=== PATIENT | female | born 1935 | race Caucasian/White ===

== ENCOUNTER 2016-10-31 14:58 | Inpatient (IN) ==
--- NOTE | 2016-10-31 15:52 | XRay Report ---
CLINICAL INFORMATION: Fall. Right hip pain. TECHNIQUE: AP pelvis and both hips. Lateral right hip COMPARISON: None. FINDINGS: Negative right hip. Normal right femoral head and neck. No fracture. No evidence for avascular necrosis. Right hip joint space is symmetric with respect to the left. Fractures of the right superior and inferior pubic rami. Left pubic bone is intact. Sacrum is negative. IMPRESSION: 1. Negative right hip 2. Fractures of the right superior and inferior pubic rami Interpreted and Authenticated by: Juan Ramon Pradhan 10/31/16
[2016-10-31 16:50] LABS: Mean Cell Volume 93.1 fL (80.0-100.0); Mean Corpuscular HGB Conc 33.2 g/dL (31.0-36.0); Mean Corpuscular Hemoglobin 30.9 pg (26.0-34.0); Platelet Count 189 K/mcL (140-440); RBC 4.65 M/mcL (4.00-5.20)
[2016-10-31 17:20] LABS: Band Neutrophils % 2 % (0-10); Eosinophils % (Manual) 1 % (0-7); Lymphocytes % 10 % (15-49); Monocytes % (Manual) 3 % (1-12); Myelocytes % 1 % (0-0); Platelet Estimate NORMAL (NORMAL); RBC Morphology NORMAL (NORMAL); Segmented Neutrophils % 83 % (38-78)
[2016-10-31] MEDS ORDERED: HYDROcodone/APAP 5/325MG TABLET PO ONE (18:21)
[2016-10-31] MEDS ORDERED: MAGNESIUM HYDROXIDE 30 ML ORAL.SUSP PO PRN (19:24)
[2016-10-31] MEDS ORDERED: traZODone HCL 50 MG TABLET PO PRN (19:24)
[2016-10-31] MEDS ORDERED: MAGNESIUM SULFATE 2 GM/50 ML BAG IV PRN (19:24)
[2016-10-31] MEDS ORDERED: ACETAMINOPHEN 325 MG TABLET PO PRN (19:24)
[2016-10-31] MEDS ORDERED: ACETAMINOPHEN 1,000 MG/100 ML BOTTLE IV PRN (19:24)
[2016-10-31] MEDS ORDERED: HYDROmorphone 2 MG/ML SYRINGE IV PRN (19:24)
[2016-10-31] MEDS ORDERED: ONDANSETRON 4 MG/2 ML VIAL IV PRN (19:24)
[2016-10-31] MEDS ORDERED: POTASSIUM CHLORIDE 20 MEQ PACKET PO PRN (19:24)
[2016-10-31] MEDS ORDERED: POLYETHYLENE GLYCOL 3350 17 GM PACKET PO PRN (19:24)
[2016-10-31] MEDS ORDERED: 0.9 % SODIUM CHLORIDE 1,000 ML IV SCH (19:24)
[2016-10-31 21:51] LABS: Appearance,Urine CLEAR; Bacteria,Urine 0 /hpf (0); Bilirubin,Urine NEG (NEG); Color,Urine YELLOW; Glucose,Urine (UA) NEGATIVE (NEG); Leukocyte Esterase,Urine NEG /uL (NEG); Mucus,Urine FEW /hpf (0); Nitrate,Urine NEG (NEG); Protein,Urine NEG (NEG); Specific Gravity,Urine 1.014 (1.000-1.035); Urine Blood 0.03 mg/dL (<0.03); Urine RBC 2 /hpf (0-1); Urine Squamous Epithelial Cell < 1 /hpf (0-4); Urine Transitional Epi Cells < 1 /hpf (0-2); Urine WBC 3 /hpf (0-4)
[2016-10-31] MEDS: DOCUSATE SODIUM 100 MG CAPSULE PO SCH (22:21)
[2016-10-31] MEDS: 0.9 % SODIUM CHLORIDE 10 ML SYRINGE IV SCH (22:22)
[2016-10-31] MEDS: SENNOSIDES/DOCUSATE SODIUM 1 TAB TABLET PO SCH (22:22)
[2016-10-31] MEDS: HEPARIN 5,000 UNIT/ML VIAL SQ SCH (22:22)
[2016-11-01] MEDS: 0.9 % SODIUM CHLORIDE 10 ML SYRINGE IV SCH ×3 (05:45→20:20)
[2016-11-01 06:26] LABS: Mean Cell Volume 92.4 fL (80.0-100.0); Mean Corpuscular HGB Conc 34.1 g/dL (31.0-36.0); Mean Corpuscular Hemoglobin 31.6 pg (26.0-34.0); Platelet Count 147 K/mcL (140-440); RBC 3.86 M/mcL (4.00-5.20); Red Cell Distribution Width 12.9 % (11.5-14.5)
[2016-11-01 06:57] LABS: Band Neutrophils % 1 % (0-10); Eosinophils % (Manual) 2 % (0-7); Lymphocytes % 13 % (15-49); Monocytes % (Manual) 2 % (1-12); Platelet Estimate NORMAL (NORMAL); RBC Morphology NORMAL (NORMAL); Segmented Neutrophils % 80 % (38-78)
[2016-11-01 06:58] LABS: ALT/SGPT 12 U/l (0-40); Albumin 3.7 gm/dL (3.2-5.2); Albumin/Globulin Ratio 1.6 (1.0-2.3); Alkaline Phosphatase 53 U/L (39-117); Bilirubin,Direct 0.2 mg/dL (0.0-0.3); Blood Urea Nitrogen 14 mg/dl (8-23); Gamma Glutamyl Transpeptidase 7 U/L (5-36); Magnesium 1.9 mg/dL (1.6-2.5); Uric Acid 3.8 mg/dL (2.5-8.0)
[2016-11-01] MEDS: PANTOPRAZOLE 40 MG TABLET PO SCH (07:07)
[2016-11-01 07:09] LABS: Hemoglobin A1C 5.2 % HGB (4.0-6.0)
[2016-11-01] MEDS: traMADol 50 MG TABLET PO PRN ×2 (08:44→16:11)
[2016-11-01] MEDS: DOCUSATE SODIUM 100 MG CAPSULE PO SCH ×2 (08:44→20:20)
[2016-11-01] MEDS: HEPARIN 5,000 UNIT/ML VIAL SQ SCH ×2 (08:44→20:20)
[2016-11-01] MEDS: LISINOPRIL 5 MG TABLET PO SCH (08:44)
[2016-11-01] MEDS: MULTIVIT,THER IRON,CA,FA & MIN 1 TABLET PO SCH (08:44)
[2016-11-01] MEDS: DONEPEZIL 10 MG TABLET PO SCH (08:44)
[2016-11-01] MEDS: ASPIRIN 81 MG TAB.CHEW PO SCH (08:45)
[2016-11-01] MEDS: DORZOLAMIDE 2% OPHTH DROPS 10ML BOTTLE OD SCH (08:46)
--- NOTE | 2016-11-01 11:30 | Internal Med Progress Note ---
Medical - PN: Subj Patient information: Note initiated : 11/01/16 at 11:30 am Service Date, if different from initiated Date: [] Patient: Caroline Connell 81 y/o F admitted on 10/31/16 for Right Hip Pain. Chief Complaint: [] Interval history: 10/31- patient admitted with right inferiorsuperior pubic rami fracture after fall. Admitted for pain management/physical therapy. veronika count 12.3 11/01-no overnight adverse events. Continue physical therapy. Family would be willing to take patient home once patient clinically improves. no overnight fever chills nausea vomiting or concerns per staff. - Constitutional Vitals: Vital Signs Temp Pulse Resp BP Pulse Ox 99.0 F 83 16 133/68 96 11/01/16 07:49 11/01/16 07:49 11/01/16 07:49 11/01/16 07:49 11/01/16 07:49 Period Temp Pulse Resp BP Sys/Hanley Pulse Ox Last 24 Hr 97.3 F-99.0 F 64-86 16-24 133-173/66-79 94-98 Intake and Output 10/31/16 11/01/16 11/01/16 21:59 05:59 13:59 Intake Total 50 / 50 480 / 480 Output Total 200 / 200 300 / 300 200 / 200 Balance -200 / -200 -250 / -250 280 / 280 Weight 161 lb 8 oz Intake & Output: Intake & Output 10/31/16 11/01/16 11/01/16 21:59 05:59 13:59 Intake Total 50 / 50 480 / 480 Output Total 200 / 200 300 / 300 200 / 200 Balance -200 / -200 -250 / -250 280 / 280 Weight 161 lb 8 oz Intake: Oral 50 / 50 480 / 480 Output: Void Amount 200 / 200 300 / 300 200 / 200 Other: Meal Breakfast Percent of Meal Consumed 100% Feeding Ability Independent General appearance: cooperative, no acute distress Exam: alert oriented nonlabored breathing nondistended abdomen No anxiety Medical - PN: Obj Da - Labs CBC & Chem 7: 11/01/16 05:34 11/01/16 05:34 Labs: Abnormal Lab Results 11/01/16 11/01/16 10/31/16 05:34 05:34 21:08 RBC 3.86 L Hct 35.7 L Seg Neutrophils % 80 H Lymphocytes % 13 L Glucose 119 H Total Bilirubin 1.8 H Urine Ketones 20 A Urine Occult Blood 0.03 A Urine Urobilinogen 2.0 A Urine RBC 2 H Meds: Medications Acetaminophen (Tylenol) 650 mg PO Q4-6HP PRN PRN Reason: PAIN/FEVER > 101 Aspirin (Aspirin) 81 mg PO DAILY [facility] Last Admin: 11/01/16 08:45 Dose: 81 mg Docusate Sodium (Colace) 100 mg PO BID [facility] Last Admin: 11/01/16 08:44 Dose: 100 mg Donepezil HCl (Aricept) 10 mg PO DAILY [facility] Last Admin: 11/01/16 08:44 Dose: 10 mg Dorzolamide HCl (Trusopt 2% Ophth Drops) 1 gtt OD DAILY [facility] Last Admin: 11/01/16 08:46 Dose: Not Given Heparin Sodium (Porcine) (Heparin) 5,000 unit SQ Q12 [facility] Last Admin: 11/01/16 08:44 Dose: 5,000 unit Hydromorphone HCl (Dilaudid) 0 mg IV Q4HP PRN PRN Reason: Pain Magnesium Sulfate (Magnesium Sulfate) 2 gm in 50 mls @ 50 mls/hr IV UD PRN PRN Reason: MG = or < 1.7 Sodium Chloride (Sodium Chloride 0.9%) 1,000 mls @ 50 mls/hr IV .Q20H [facility] Stop: 11/03/16 07:23 Last Admin: 10/31/16 20:19 Dose: 50 mls/hr Acetaminophen (Ofirmev) 1,000 mg in 100 mls @ 200 mls/hr IV Q6HP PRN PRN Reason: PAIN/FEVER > 101 Iron Carb/Multivit/[place]/Folic Acid (Multivitamin W/Minerals) 1 tab PO DAILY [facility] Last Admin: 11/01/16 08:44 Dose: 1 tab Lisinopril (Zestril) 5 mg PO DAILY [facility] Last Admin: 11/01/16 08:44 Dose: 5 mg Magnesium Hydroxide (Milk Of Magnesia) 30 ml PO HSP PRN PRN Reason: Constipation Ondansetron HCl (Zofran) 4 mg IV Q4-6HP PRN PRN Reason: Nausea And Vomiting Pantoprazole Sodium (Protonix) 40 mg PO QAMAC [facility] Last Admin: 11/01/16 07:07 Dose: 40 mg Bimatoprost [Lumigan ] Ophthalmic Solution 1 dose BOTH EYES HS DOT Polyethylene Glycol (Miralax) 17 gm PO DAILYP PRN PRN Reason: Constipation Potassium Chloride (Klor-Con) 40 meq PO DAILYP PRN PRN Reason: K+ < 3.5 Senna/Docusate Sodium (Senna Plus Tablet) 1 tab PO HS [facility] Last Admin: 10/31/16 22:22 Dose: Not Given Sodium Chloride (Saline Flush) 10 ml IV Q8 [facility] Last Admin: 11/01/16 05:45 Dose: Not Given Tramadol HCl (Ultram) 50 mg PO Q4-6HP PRN PRN Reason: Pain Last Admin: 11/01/16 08:44 Dose: 50 mg Trazodone HCl (Desyrel) 50 mg PO HSP PRN PRN Reason: Insomnia Medical - PN: A/P - Time Spent With Patient Total time spent is greater than 50% in coordination of care (as documented) at patient's floor/unit and/or counseling patient: 25 - 35 minutes (1) Pubic ramus fracture Status: Acute Assessment and plan: * pubic rami fracture secondary to fall-continue physical therapy and pain management * pain management on as needed opioids * History of dementia and donepezil * hypertension lisinopril * Glaucoma on bimatoprost/dorzolamide plan * Continue physical therapy/pain management * Pre-existing medical condition management as above * SNF transfer if advised by physical therapy Current Visit: Yes Medical - PN: Qual - VTE Deep Vein Thrombosis/Pulmonary Embolism Present on Admission: No
--- NOTE | 2016-11-01 12:38 | History and Physical Report ---
DATE OF ADMISSION: 10/31/2016 PRIMARY CARE PHYSICIAN: Lana Perla MD REASON FOR ADMISSION: Fall with hip pain. HISTORY OF CHIEF COMPLAINT: The patient is an 81-year-old who lives with her and was in baseline state of health until she was working in the garden, and fell after she got up working on flower beds, tripped and landed on the curb. She was subsequently brought to [facility] ER after she had significant pain. Initial workup was significant for pelvis fracture involving the superior and inferior pubic rami on the right side. There is no evidence of hematuria. The patient was started on pain management. Hospitalist Service was consulted. At the time of examination, the patient is alert and oriented. She denies any active significant distress. She denies precipitating events including lightheadedness, dizziness, tearing neck pain, palpitation, or loss of consciousness. She attributes the fall to her shoe getting caught on the turf. Other than that, she denies recent headache, photophobia, fever, chills, shortness of breath, nausea, vomiting. REVIEW OF SYSTEMS: Ten-point review of system was performed and negative except the ones discussed above. PAST MEDICAL HISTORY: 1. Hypertension. 2. Dementia. 3. Glaucoma. ALLERGIES: None significant. CURRENT MEDICATIONS: 1. Lisinopril. 2. Donepezil 10 mg. 3. Aspirin 81 mg. 4. Dorzolamide. 5. Bimatroprost. SOCIAL HISTORY: Nonsmoker, no history of alcoholism. CODE STATUS: FULL CODE. She lives with her , has mild underlying dementia, but fairly functional at baseline. FAMILY HISTORY: Nonrelevant given advanced age and nature of injury. PHYSICAL EXAMINATION: GENERAL: The patient is alert and oriented. She denies any active distress. She has minimal discomfort on a hip movement. BMI 25. Height 5 feet 7 inches. VITAL SIGNS: Blood pressure 173/79, respiratory rate 24, temperature 97.3, pulse 86, sats 95% on room air. HEENT: Pupils symmetric. Oral cavity is dry. No ear or nose discharge. Head is normocephalic and atraumatic. NECK: No lymphadenopathy. HEART: S1, S2 regular rhythm. ESM grade I, with radiation to the carotid. ABDOMEN: Soft, nontender. CHEST: Otherwise, clear to auscultation bilaterally. LOWER EXTREMITIES: Bilateral lower extremity, no cyanosis or clubbing; mild stasis changes and minimal edema, but no joint swelling, or rash. SKIN: Otherwise, no suspicious lesions. PSYCHIATRIC: Alert and cooperative. No anxiety. NEURO: Nonfocal, moving all four extremities. LABS AND IMAGING: White count 12.3, hemoglobin 14.4, and platelets 189, sodium 141, potassium 3.9, creatinine 0.7, BUN 17. LFTs unremarkable. UA unremarkable. X-ray hip: Right superior and inferior pubic ramus fracture. ASSESSMENT AND PLAN: An 81-year-old admitted with pelvis fracture involving the right superior and inferior pubic rami. Admit as inpatient for pain management along with aggressive physical therapy. No evidence of bladder trauma or hematuria. Continue pain management on acetominophen and low-dose opioids. 1. History of hypertension. Continue antihypertensive. 2. History of glaucoma. Continue dorzolamide and bimatoprost. 3. History of dementia. Continue donepezil. 4. DVT prophylaxis, start heparin. PLAN FOR TODAY: 1. Admit as inpatient. 2. Pain management. 3. Aggressive physical therapy. 4. Possible SNF transfer coordination if the patient is a high risk discharge. AA:christine Job ID: [id number] Doc ID: [id number] Phillip Perla MD
[2016-11-01] MEDS: SENNOSIDES/DOCUSATE SODIUM 1 TAB TABLET PO SCH (20:20)
[2016-11-01] MEDS: BIMATOPROST BOTH EYES SCH (20:20)
[2016-11-02] MEDS: traMADol 50 MG TABLET PO PRN (01:03)
[2016-11-02] MEDS: 0.9 % SODIUM CHLORIDE 10 ML SYRINGE IV SCH ×3 (05:38→21:05)
[2016-11-02] MEDS: DORZOLAMIDE 2% OPHTH DROPS 10ML BOTTLE OD SCH ×2 (06:05→08:30)
[2016-11-02 06:13] LABS: Mean Cell Volume 93.1 fL (80.0-100.0); Mean Corpuscular HGB Conc 33.8 g/dL (31.0-36.0); Mean Corpuscular Hemoglobin 31.5 pg (26.0-34.0); Platelet Count 119 K/mcL (140-440); RBC 3.32 M/mcL (4.00-5.20); Red Cell Distribution Width 12.5 % (11.5-14.5)
[2016-11-02 06:45] LABS: ALT/SGPT 11 U/l (0-40); Albumin 3.2 gm/dL (3.2-5.2); Albumin/Globulin Ratio 1.4 (1.0-2.3); Alkaline Phosphatase 48 U/L (39-117); Bilirubin,Direct 0.2 mg/dL (0.0-0.3); Blood Urea Nitrogen 16 mg/dl (8-23); Gamma Glutamyl Transpeptidase 6 U/L (5-36); Magnesium 2.1 mg/dL (1.6-2.5); Uric Acid 3.6 mg/dL (2.5-8.0)
[2016-11-02 07:15] LABS: Eosinophils % (Manual) 1 % (0-7); Lymphocytes % 13 % (15-49); Monocytes % (Manual) 6 % (1-12); Platelet Estimate NORMAL (NORMAL); RBC Morphology NORMAL (NORMAL); Segmented Neutrophils % 80 % (38-78)
[2016-11-02] MEDS: PANTOPRAZOLE 40 MG TABLET PO SCH (07:57)
[2016-11-02] MEDS: MULTIVIT,THER IRON,CA,FA & MIN 1 TABLET PO SCH (08:28)
[2016-11-02] MEDS: HEPARIN 5,000 UNIT/ML VIAL SQ SCH ×2 (08:28→21:05)
[2016-11-02] MEDS: ASPIRIN 81 MG TAB.CHEW PO SCH (08:28)
[2016-11-02] MEDS: LISINOPRIL 5 MG TABLET PO SCH (08:28)
[2016-11-02] MEDS: DOCUSATE SODIUM 100 MG CAPSULE PO SCH ×2 (08:29→21:05)
[2016-11-02] MEDS: DONEPEZIL 10 MG TABLET PO SCH (08:29)
--- NOTE | 2016-11-02 09:14 | Internal Med Progress Note ---
Medical - PN: Subj Patient information: Note initiated : 11/02/16 at 9:13 am Service Date, if different from initiated Date: [] Patient: Caroline Connell 81 y/o F admitted on 10/31/16 for Right Hip Pain. Chief Complaint: [] Interval history: 10/31- patient admitted with right inferiorsuperior pubic rami fracture after fall. Admitted for pain management/physical therapy. veronika count 12.3 11/01-no overnight adverse events. Continue physical therapy. Family would be willing to take patient home once patient clinically improves. no overnight fever chills nausea vomiting or concerns per staff. 10/23- Patient doing well. No O/N events. Pain in good control. Ambulating and tolerating PT. Likely DC to SNF in AM - Constitutional Vitals: Vital Signs Temp Pulse Resp BP Pulse Ox 98.4 F 66 18 138/55 94 11/02/16 07:05 11/02/16 04:00 11/02/16 07:05 11/02/16 07:05 11/02/16 07:05 Period Temp Pulse Resp BP Sys/Hanley Pulse Ox Last 24 Hr 97.6 F-98.4 F 62-72 18-20 111-152/55-69 93-94 Intake and Output 11/01/16 11/02/16 11/02/16 21:59 05:59 13:59 Intake Total 360 / 360 700 / 700 480 / 480 Output Total 500 / 500 600 / 600 75 / 75 Balance -140 / -140 100 / 100 405 / 405 Weight 162 lb Intake & Output: Intake & Output 11/01/16 11/02/16 11/02/16 21:59 05:59 13:59 Intake Total 360 / 360 700 / 700 480 / 480 Output Total 500 / 500 600 / 600 75 / 75 Balance -140 / -140 100 / 100 405 / 405 Weight 162 lb Intake: Oral 360 / 360 700 / 700 480 / 480 Output: Void Amount 500 / 500 600 / 600 75 / 75 Other: Meal Breakfast Percent of Meal Consumed 100% # Voids 1 General appearance: cooperative, no acute distress Exam: alert and oriented Non Labored breathing No fever or chills. no lymphedema Medical - PN: Obj Da - Labs CBC & Chem 7: 11/02/16 05:28 11/02/16 05:28 Labs: Abnormal Lab Results 11/02/16 11/02/16 11/01/16 05:28 05:28 05:34 RBC 3.32 L Hgb 10.4 L Hct 30.9 L Plt Count 119 L Seg Neutrophils % 80 H Lymphocytes % 13 L Glucose 119 H Calcium 8.5 L Total Bilirubin 1.4 H 1.8 H Total Protein 5.5 L Urine Ketones Urine Occult Blood Urine Urobilinogen Urine RBC 11/01/16 10/31/16 05:34 21:08 RBC 3.86 L Hgb Hct 35.7 L Plt Count Seg Neutrophils % 80 H Lymphocytes % 13 L Glucose Calcium Total Bilirubin Total Protein Urine Ketones 20 A Urine Occult Blood 0.03 A Urine Urobilinogen 2.0 A Urine RBC 2 H Meds: Medications Acetaminophen (Tylenol) 650 mg PO Q4-6HP PRN PRN Reason: PAIN/FEVER > 101 Aspirin (Aspirin) 81 mg PO DAILY [facility] Last Admin: 11/02/16 08:28 Dose: 81 mg Docusate Sodium (Colace) 100 mg PO BID [facility] Last Admin: 11/02/16 08:29 Dose: 100 mg Donepezil HCl (Aricept) 10 mg PO DAILY [facility] Last Admin: 11/02/16 08:29 Dose: 10 mg Dorzolamide HCl (Trusopt 2% Ophth Drops) 1 gtt OD DAILY [facility] Last Admin: 11/02/16 08:30 Dose: 1 gtt Heparin Sodium (Porcine) (Heparin) 5,000 unit SQ Q12 [facility] Last Admin: 11/02/16 08:28 Dose: 5,000 unit Hydromorphone HCl (Dilaudid) 0 mg IV Q4HP PRN PRN Reason: Pain Magnesium Sulfate (Magnesium Sulfate) 2 gm in 50 mls @ 50 mls/hr IV UD PRN PRN Reason: MG = or < 1.7 Acetaminophen (Ofirmev) 1,000 mg in 100 mls @ 200 mls/hr IV Q6HP PRN PRN Reason: PAIN/FEVER > 101 Iron Carb/Multivit/[place]/Folic Acid (Multivitamin W/Minerals) 1 tab PO DAILY [facility] Last Admin: 11/02/16 08:28 Dose: 1 tab Lisinopril (Zestril) 5 mg PO DAILY [facility] Last Admin: 11/02/16 08:28 Dose: 5 mg Magnesium Hydroxide (Milk Of Magnesia) 30 ml PO HSP PRN PRN Reason: Constipation Ondansetron HCl (Zofran) 4 mg IV Q4-6HP PRN PRN Reason: Nausea And Vomiting Last Admin: 11/01/16 18:35 Dose: 4 mg Pantoprazole Sodium (Protonix) 40 mg PO QAMAC [facility] Last Admin: 11/02/16 07:57 Dose: 40 mg Bimatoprost [Lumigan ] Ophthalmic Solution 1 dose BOTH EYES [facility] Last Admin: 11/01/16 20:20 Dose: Not Given Polyethylene Glycol (Miralax) 17 gm PO DAILYP PRN PRN Reason: Constipation Potassium Chloride (Klor-Con) 40 meq PO DAILYP PRN PRN Reason: K+ < 3.5 Senna/Docusate Sodium (Senna Plus Tablet) 1 tab PO HS [facility] Last Admin: 11/01/16 20:20 Dose: 1 tab Sodium Chloride (Saline Flush) 10 ml IV Q8 [facility] Last Admin: 11/02/16 05:38 Dose: 10 ml Tramadol HCl (Ultram) 50 mg PO Q4-6HP PRN PRN Reason: Pain Last Admin: 11/02/16 01:03 Dose: 50 mg Trazodone HCl (Desyrel) 50 mg PO HSP PRN PRN Reason: Insomnia Medical - PN: A/P - Time Spent With Patient Total time spent is greater than 50% in coordination of care (as documented) at patient's floor/unit and/or counseling patient: 15 - 24 minutes (1) Pubic ramus fracture Status: Acute Assessment and plan: * Rt Pubic rami fracture secondary to fall- clinically improved with physical therapy and pain management. Discharge to SNF in 24 hours * Pain management -ell-controlled on as needed opioids * History of dementia and donepezil * hypertension lisinopril * Glaucoma on bimatoprost/dorzolamide plan * anticipate SNF transfer in 24 hours * continue Pre-existing medical condition management as above Current Visit: Yes Medical - PN: Qual - VTE Deep Vein Thrombosis/Pulmonary Embolism Present on Admission: No
[2016-11-02] MEDS: BIMATOPROST BOTH EYES SCH (21:00)
[2016-11-02] MEDS: SENNOSIDES/DOCUSATE SODIUM 1 TAB TABLET PO SCH (21:05)
[2016-11-03] MEDS: 0.9 % SODIUM CHLORIDE 10 ML SYRINGE IV SCH (05:38)
[2016-11-03 06:59] LABS: Mean Cell Volume 92.6 fL (80.0-100.0); Mean Corpuscular HGB Conc 33.7 g/dL (31.0-36.0); Mean Corpuscular Hemoglobin 31.2 pg (26.0-34.0); Platelet Count 130 K/mcL (140-440); RBC 3.52 M/mcL (4.00-5.20); Red Cell Distribution Width 12.7 % (11.5-14.5)
[2016-11-03] MEDS: PANTOPRAZOLE 40 MG TABLET PO SCH (07:10)
[2016-11-03] MEDS: traMADol 50 MG TABLET PO PRN (07:10)
[2016-11-03 07:48] LABS: ALT/SGPT 12 U/l (0-40); Albumin 3.5 gm/dL (3.2-5.2); Albumin/Globulin Ratio 1.5 (1.0-2.3); Alkaline Phosphatase 48 U/L (39-117); Bilirubin,Direct < 0.2 mg/dL (0.0-0.3); Blood Urea Nitrogen 14 mg/dl (8-23); Gamma Glutamyl Transpeptidase 9 U/L (5-36); Magnesium 2.1 mg/dL (1.6-2.5); Uric Acid 3.8 mg/dL (2.5-8.0)
[2016-11-03] MEDS: LISINOPRIL 5 MG TABLET PO SCH (08:03)
[2016-11-03] MEDS: DOCUSATE SODIUM 100 MG CAPSULE PO SCH (08:03)
[2016-11-03] MEDS: MULTIVIT,THER IRON,CA,FA & MIN 1 TABLET PO SCH (08:03)
[2016-11-03] MEDS: ASPIRIN 81 MG TAB.CHEW PO SCH (08:04)
[2016-11-03] MEDS: DONEPEZIL 10 MG TABLET PO SCH (08:04)
[2016-11-03] MEDS: HEPARIN 5,000 UNIT/ML VIAL SQ SCH (08:05)
[2016-11-03 08:44] LABS: Eosinophils % (Manual) 7 % (0-7); Lymphocytes % 10 % (15-49); Monocytes % (Manual) 2 % (1-12); Platelet Estimate DECREASED (NORMAL); RBC Morphology NORMAL (NORMAL); Segmented Neutrophils % 81 % (38-78)
[2016-11-03] MEDS: DORZOLAMIDE 2% OPHTH DROPS 10ML BOTTLE OD SCH (10:08)
--- NOTE | 2016-11-03 10:22 | Discharge Summary ---
Medical - DS: Prov Patient information: Note initiated : 11/03/16 at 10:16 am Service Date, if different from initiated Date: [] Patient: Carolnie Connell 81 y/o F admitted on 10/31/16 for Right Hip Pain. Date of admission: 10/31/16 19:04 Discharge date: 11/03/16 Primary care physician: Lana Perla,[id number] Admitting clinician: Phillip Shafer Attending physician on discharge: Tracey Kwon Medical - DS: Meds - Discharge Medications Active and Home Medications: Home Medications Aspirin [Adult Low Dose Aspirin EC] 81 mg PO DAILY 10/31/16 [History Confirmed 10/31/16 Last Taken 10/31/16 06:30] Bimatoprost [Lumigan] 1 drop BOTH EYES HS 10/31/16 [History Confirmed 10/31/16 Last Taken 10/30/16 21:00] Donepezil HCl [Aricept] 10 mg PO DAILY 10/31/16 [History Confirmed 10/31/16 Last Taken 10/31/16 06:30] Dorzolamide 2% Ophth Drops [Trusopt 2% Ophth Drops] 1 gtt OD DAILY 10/31/16 [ History Confirmed 10/31/16 Last Taken 10/31/16 06:00] Lisinopril [Zestril] 5 mg PO DAILY 10/31/16 [History Confirmed 10/31/16 Last Taken 10/31/16 06:30] calcium plus D, twice a day norcoand/or tramadol, when necessary pain Medical - DS: Hosp Hospital course: Mr. Connell is a 81 year old male 10/31- patient admitted with right inferiorsuperior pubic rami fracture after fall. Admitted for pain management/physical therapy. veronika count 12.3 11/01-no overnight adverse events. Continue physical therapy. Family would be willing to take patient home once patient clinically improves. no overnight fever chills nausea vomiting or concerns per staff. 11/02- Patient doing well. No O/N events. Pain in good control. Ambulating and tolerating PT. Likely DC to SNF in AM November 03:his patient had a fall in her garden,and sustained a fracture of both the superior and inferior pubic rami on the right side. She was admitted for pain control and physical therapy evaluation. she is doing well with these measures, and is now being transferred for physical therapy/rehabilitation. Today, she reports minimal pain. She says she did well walking with physical therapy, and a walker, to and from the bathroom. She lives with her and a trailer, and her family feels she would be safer to do some rehabilitation , prior to returning to her small home. her dementia also puts her at increased risk for recurrent fall. She denies fever or chills, headaches or dizziness, chest pain or shortness of breath, abdominal pain, nausea or vomiting, dysuria. on exam, she is a pleasant elderly female in no acute distress. Neck is supple without obvious lymphadenopathy or JVD. Cardiac exam shows regular rate and rhythm. Lungs: Are clear to auscultation.Abdomen is soft and nontender. Extremities show no cyanosis, clubbing, edema. Neurologic: Patient is alert calm and cooperative. assessment and plan: #1.Right-sided pubic rami fracture. Transferred to rehabilitation, and work on physical therapy and occupational therapy. Use tramadoland hydrocodone as needed for pain control. Her goal is to return home with her . She believes her daughter will also come into town and stay with her after rehabilitation. #2. History of dementia. continue donepezil #3. DVT prophylaxis: Continue subcutaneous heparin, until she is consistentlyambulatory. #4. CODE STATUS:Full code. #5. Hypertension. Continue lisinopril. #6. Glaucoma. Continue current eyedrops. #7. Anemia. he patient is rather anemic, and dropped her hemoglobin from 14 down to 11, during her stay. Her normal baselineis unclear.er platelet count is also a bit low at 130,000. -i would plan on checking a follow-up CBCin the next few days. detention attending should also contact her primary care physician to see if her anemia has been previously worked up. Discharge diagnosis: pelvis fracture right inferior and superior rami Secondary discharge diagnosis: dementia, hypertension, anemia - Time Spent with Patient Total time spent providing and/or coordinating discharge services: Greater than 30 minutes Medical - DS: Exam - Constitutional Vitals: Vital Signs Temp Pulse Resp BP BP Pulse Ox 11/03/16 08:00 98.1 F 78 16 162/86 96 11/03/16 03:20 98.4 F 77 16 158/76 93 11/02/16 23:10 97.3 F 66 16 178/69 92 11/02/16 19:15 98.2 F 64 16 147/59 92 11/02/16 14:49 98.4 F 18 170/65 91 11/02/16 11:10 97.5 F 18 139/60 95 Intake and Output 11/02/16 11/03/16 11/03/16 21:59 05:59 13:59 Intake Total 600 / 600 Output Total 601 / 601 575 / 575 125 / 125 Balance -601 / -601 -125 / -125 Intake: Oral 600 / 600 Output: Void Amount 600 / 600 575 / 575 125 / 125 # of times incontinent of urine Other: Meal Dinner Percent of Meal Consumed 100% # Voids 1 06 17 Weight 160 lb Medical - DS: Data Labs on day of discharge: Labs from last 24 hours 11/03/16 11/03/16 05:30 05:30 WBC 6.4 RBC 3.52 L Hgb 11.0 L Hct 32.6 L MCV 92.6 MCH 31.2 MCHC 33.7 RDW 12.7 Plt Count 130 L MPV 9.6 Total Counted 100 Seg Neutrophils % 81 H Band Neutrophils % Not Reportable Lymphocytes % 10 L Monocytes % (Manual) 2 Eosinophils % (Manual) 7 Platelet Estimate Decreased RBC Morphology Normal Sodium 143 Potassium 3.8 Chloride 105 Carbon Dioxide 27 Anion Gap 11.0 BUN 14 Creatinine 0.7 GFR Calculation 81 Glucose 113 H Uric Acid 3.8 Calcium 8.7 Phosphorus 2.8 Magnesium 2.1 Total Bilirubin 1.2 H Direct Bilirubin < 0.2 GGT 9 AST 21 ALT 12 Alkaline Phosphatase 48 Lactate Dehydrogenase 228 Total Protein 5.8 L Albumin 3.5 Globulin 2.3 Albumin/Globulin Ratio 1.5 Triglycerides 86 ionized calcium was low at 1.12ext Urinalysis from October 31: Shows pH of 7, specific gravity 1.014, 20 ketones, negative for leukocyte esterase nitrites, bacteria. Urine culture was negative. Hip x-ray;Shows fractures of the right superior and inferior pubic rami. Medical - DS: A/P - Patient/Caregiver Discharge Instructions Activity: ambulate only with your walker, as per physical therapy Diet: Low Sodium (2gm), High Fiber Other Amb Orders: Complete Blood Count Time Frame: 2 Days, Location: Determined By Patient - Follow up Plan Follow up with: Lana Perla MD [Primary Care Provider] - (Follow up with [facility] ) Disposition: Xfer Inpatient Rehab Fac Prognosis: Good Rehab Potential: Good I certify that the patient requires SNF services: Yes Overall status at discharge: patient is progressing back to baseline Medical - DS: Qual - VTE Deep Vein Thrombosis/Pulmonary Embolism Present on Admission: No
--- NOTE | 2016-11-07 09:01 | Emergency Department Note ---
General Adult HPI - General Chief complaint: Extremity Injury, Lower Stated complaint: Right Hip Pain Time Seen by Provider: 10/31/16 16:08 Source: patient Mode of arrival: ambulatory Limitations: no limitations - History of Present Illness HPI Narrative: 81-year-old female was working in the flower beds tripped and fell is having pain to the right hip. She states that she just fell because she caught her foot on the turf. No head injury no other injuries involved. - Related Data Home Medications Medication Instructions Recorded Confirmed Aspirin [Adult Low Dose Aspirin EC] 81 mg PO DAILY 10/31/16 10/31/16 Bimatoprost [Lumigan] 1 drop BOTH EYES HS 10/31/16 10/31/16 Donepezil HCl [Aricept] 10 mg PO DAILY 10/31/16 10/31/16 Dorzolamide 2% Ophth Drops 1 gtt OD DAILY 10/31/16 10/31/16 [Trusopt 2% Ophth Drops] Lisinopril [Zestril] 5 mg PO DAILY 10/31/16 10/31/16 Previous Rx's Medication Instructions Recorded Calcium Carbonate/Vitamin D3 1 each PO BID #1 tablet 11/03/16 [Calcium 500-Vit D3 600 Tablet] HYDROcodone/APAP 5/325MG [[place] 1 tab PO Q4HP PRN #20 tablet 11/03/16 5/325Mg] traMADol HCL [Ultram] 50 mg PO Q4-6HP PRN #30 tablet 11/03/16 Allergies Allergy/AdvReac Type Severity Reaction Status Date / Time No Known Drug Allergies Allergy Verified 10/31/16 15:04 Review of Systems All systems ED: reviewed and negative except as stated. Musculoskeletal: Reports: as per HPI, other Past Medical History - Past Medical History Medical history: Reports: hypertension, other (Dementia glaucoma) Surgical history ED: Reports: non-contributory Family history: Reports: non-contributory - Social History smoking status: Never smoker Alcohol use: Reports: None Physical Exam - General Limitations: no limitations General appearance: alert, in no apparent distress - Head Head exam: atraumatic, normocephalic - Eye Eye exam: Present: normal appearance, PERRL - ENT ENT exam: normal exam, normal oropharynx - Neck Neck exam: Present: normal inspection, full ROM, trachea midline - Chest Chest inspection: Present: normal inspection, symmetric chest wall rise - Respiratory Respiratory exam: Present: normal lung sounds bilaterally, respiratory distress. Absent: wheezes, stridor - Cardiovascular Cardiovascular exam: Present: regular rate, normal rhythm. Absent: bradycardia , tachycardia - Abdominal Exam Abdominal exam: Present: soft. Absent: distention, tenderness, guarding, rebound - Extremities Exam Extremities exam: Present: normal inspection, full ROM - Expanded Lower Extremity Exam Hip/Pelvis exam: Present: tenderness, pelvis stable. Absent: swelling, abrasion , laceration - Back Exam Back exam: Present: normal inspection, full ROM, tenderness - Neurological Exam Neurological exam: Present: alert, oriented X3, CN II-XII intact - Psychiatric Psychiatric exam: Present: normal affect, normal mood Course Vital Signs Temperature 98.2 F 10/31/16 14:59 Pulse Rate 60 10/31/16 14:59 Respiratory Rate 14 10/31/16 14:59 Blood Pressure 213/69 10/31/16 14:59 Pulse Oximetry (%) 96 10/31/16 14:59 Temperature 98.8 F 11/03/16 10:58 Pulse Rate 78 11/03/16 08:00 Respiratory Rate 69 H 11/03/16 10:58 Blood Pressure 132/81 11/03/16 10:58 Pulse Oximetry (%) 96 11/03/16 10:58 Medical Decision Making - [facility] Narrative Medical decision making narrative: X-rays show pelvic fracture, having pain weakness patient to be admitted - Lab Data Result diagrams: 11/03/16 05:30 11/03/16 05:30 Lab Results 10/31/16 10/31/16 Range/Units 16:16 16:16 WBC 12.3 H (4.5-11.0) K/mcL RBC 4.65 (4.00-5.20) M/mcL Hgb 14.4 (12.0-15.0) g/dL Hct 43.3 (36.0-48.0) % POC Hct 46.0 (36.0-48.0) % MCV 93.1 (80.0-100.0) fL MCH 30.9 (26.0-34.0) pg MCHC 33.2 (31.0-36.0) g/dL RDW 13.0 (11.5-14.5) % Plt Count 189 (140-440) K/mcL MPV 9.1 (7.4-10.4) fL Total Counted 100 Seg Neutrophils % 83 H (38-78) % Band Neutrophils % 2 (0-10) % Lymphocytes % 10 L (15-49) % Monocytes % (Manual) 3 (1-12) % Eosinophils % (Manual) 1 (0-7) % Myelocytes % 1 H (0-0) % Platelet Estimate Normal (NORMAL) RBC Morphology Normal (NORMAL) POC Sodium 141 (133-145) mmol/L POC Potassium 3.9 (3.3-5.1) mmol/L POC Chloride 104 (96-108) mmol/L POC Total CO2 25 (22-30) mmol/L POC BUN 17 (8-23) mg/dl POC Creatinine 0.7 (0.6-1.1) mg/dl POC Glucose 131 H (70-105) mg/dL POC WB Ioniz Calcium 1.12 L (1.16-1.32) mmol/L Disposition Clinical Impression: pubic rami fracture Disposition: Xfer As Inpt ([facility]) Condition: Good
== END 2016-11-03 10:25 | DRG 536 ==
LOC: ED 14:58 → MEDSUR 19:04 → SUATTDRO 19:04 → MEDSUR 19:05
PROVIDERS: ADMIT Internal Medicine; ATTEND Internal Medicine